=== PATIENT | male | born 1940 | race African-American/Black ===

== ENCOUNTER 2021-08-22 21:10 | Inpatient (IN) | payer OTHER ==
[~2021-08-22] VITALS: Ht 172.7 cm; Wt 80.7 kg
[2021-08-22] MEDS ORDERED: SODIUM CHLORIDE 0.9% 1,000 ML IV ONE (21:30)
[2021-08-22 22:57] LABS: BASOPHILS % 0.3 % (0.0-2.0); EOSINOPHILS % 0.6 % (0.0-5.0); HEMATOCRIT. 46.7 % (42.0-52.0); HEMOGLOBIN. 15.3 g/dL (14.0-18.0); MEAN CORPUSCULAR HEMOGLOBIN 28.5 pg (28.0-32.0); MEAN CORPUSCULAR VOLUME 87.2 fL (80.0-94.0); MEAN PLATELET VOLUME 9.8 fl (7.4-10.4); MONOCYTES % 5.5 % (2.0-8.0); NEUTROPHILS % 74.6 % (40.0-76.0); PLATELET 224 x1000/uL (130-400); RED BLOOD CELL COUNT 5.36 mill/uL (4.7-6.1); RED CELL DISTRIBUTION WIDTH 15.6 % (11.6-14.6)
[2021-08-22 23:00] LABS: CHLORIDE 102 mEq/L (98-107)
[2021-08-22 23:05] LABS: ETHANOL BLOOD < 10 mg/dL
[2021-08-23 02:26] VITALS: BP 154/75
[2021-08-23] MEDS ORDERED: ASPI-1497 PO (03:32)
[2021-08-23] MEDS ORDERED: LISI20TA31 PO (03:32)
[2021-08-23 03:34] LABS: CLARITY URINE TURBID (CLEAR); COLOR URINE YELLOW (YELLOW); KETONES URINE TRACE (NEGATIVE); LEUKOCYTE ESTERASE URINE 3+ (NEGATIVE); NITRITE URINE NEGATIVE (NEGATIVE); OCCULT BLOOD URINE 3+ (NEGATIVE); PH URINE 5.5 (4.5-8.0); PROTEIN URINE 2+ (NEGATIVE); SPECIFIC GRAVITY URINE 1.014 (1.005-1.030)
[2021-08-23 03:45] LABS: *BARBITURATES SCREEN URINE NEGATIVE (NEGATIVE); *BENZODIAZEPINES SCREEN URINE NEGATIVE (NEGATIVE); *COCAINE SCREEN URINE NEGATIVE (NEGATIVE); METHADONE URINE SCREEN NEGATIVE (NEGATIVE); OPIATES URINE SCREEN NEGATIVE (NEGATIVE); PHENCYCLIDINE URINE SCREEN NEGATIVE (NEGATIVE)
[2021-08-23 03:46] LABS: *AMPHETAMINES SCREEN URINE NEGATIVE (NEGATIVE); CANNABINOID URINE SCREEN NEGATIVE (NEGATIVE)
[2021-08-23 04:00] VITALS: BP 148/80
[2021-08-23] MEDS ORDERED: DEXTROSE 50% WATER 50ML SYRINGE IV PRN ×2 (04:00→17:45)
[2021-08-23] MEDS: BLOOD SUGAR DIAGNOSTIC STRIP TEST SCH ×4 (06:40→20:12)
[2021-08-23] MEDS: METFORMIN HCL 500MG TABLET PO SCH ×3 (07:10→16:20)
[2021-08-23] MEDS: INSULIN LISPRO 100 UNITS/ML SUBCUT SCH ×4 (07:10→20:12)
[2021-08-23 08:00] VITALS: BP 158/87
[2021-08-23] MEDS: ASPIRIN 81MG TABLET PO SCH (08:29)
[2021-08-23] MEDS: LISINOPRIL 20MG TABLET PO SCH (08:29)
[2021-08-23 10:27] LABS: EOSINOPHILS % 3.1 % (0.0-5.0); HEMATOCRIT. 40.1 % (42.0-52.0); HEMOGLOBIN. 13.5 g/dL (14.0-18.0); LYMPHOCYTES % 21.9 % (20.0-50.0); MEAN CORPUSCULAR VOLUME 86.2 fL (80.0-94.0); MEAN PLATELET VOLUME 9.6 fl (7.4-10.4); MONOCYTES % 14.1 % (2.0-8.0); NEUTROPHILS % 59.9 % (40.0-76.0); PLATELET 181 x1000/uL (130-400); RED BLOOD CELL COUNT 4.65 mill/uL (4.7-6.1); RED CELL DISTRIBUTION WIDTH 15.6 % (11.6-14.6)
[2021-08-23 10:42] LABS: CHLORIDE 105 mEq/L (98-107)
[2021-08-23 10:49] LABS: LDL CHOLESTEROL 85 mg/dL (5-100)
[2021-08-23 10:51] LABS: HDL CHOLESTEROL 40 mg/dL (40-59)
[2021-08-23 12:00] VITALS: BP 128/56
[2021-08-23 16:00] VITALS: BP 146/76
[2021-08-23] MEDS ORDERED: DOCUSATE SODIUM 100MG CAPSULE PO PRN (17:45)
[2021-08-23] MEDS ORDERED: MAGNESIUM/ALUMINUM HYDROXIDE/SIMETHICONE 30ML UDC PO PRN (17:45)
[2021-08-23] MEDS ORDERED: ACETAMINOPHEN 325MG TABLET PO PRN (17:45)
[2021-08-23] MEDS ORDERED: HYDROCODONE/ACETAMINOPHEN 10/325MG TABLET PO PRN (17:45)
[2021-08-23] MEDS ORDERED: ONDANSETRON HCL 4MG/2ML INJ IV PRN (17:45)
[2021-08-23] MEDS ORDERED: CLONIDINE 0.1MG TABLET PO PRN (17:45)
[2021-08-23] MEDS ORDERED: NALOXONE HCL 0.4MG/ML VIAL IV PRN (18:00)
[2021-08-23] MEDS: CEFTRIAXONE 1,000 MG in DEXTROSE 5% WATER 50 ML IV SCH (19:47)
[2021-08-23 20:00] VITALS: BP 115/73
[2021-08-23] MEDS: ENOXAPARIN 40MG/0.4ML SYR SUBCUT SCH (20:13)
[2021-08-24] VITALS: BP 120/80
[2021-08-24 04:00] VITALS: BP 124/62
[2021-08-24] MEDS: BLOOD SUGAR DIAGNOSTIC STRIP TEST SCH ×4 (06:19→20:25)
[2021-08-24] MEDS: INSULIN LISPRO 100 UNITS/ML SUBCUT SCH ×4 (06:19→20:26)
[2021-08-24] MEDS: METFORMIN HCL 500MG TABLET PO SCH ×3 (06:22→16:52)
[2021-08-24] MEDS: OMEPRAZOLE 20MG CAPSULE EXTENDED RELEASE PO SCH (06:22)
[2021-08-24 08:00] VITALS: BP 131/63
[2021-08-24] MEDS: ASPIRIN 81MG TABLET PO SCH (08:57)
[2021-08-24] MEDS: LISINOPRIL 20MG TABLET PO SCH (09:01)
[2021-08-24 10:28] LABS: HEMATOCRIT. 39.6 % (42.0-52.0); HEMOGLOBIN. 13.3 g/dL (14.0-18.0); MEAN CORPUSCULAR HEMOGLOBIN 28.8 pg (28.0-32.0); MEAN CORPUSCULAR VOLUME 85.8 fL (80.0-94.0); RED BLOOD CELL COUNT 4.61 mill/uL (4.7-6.1); RED CELL DISTRIBUTION WIDTH 15.4 % (11.6-14.6)
[2021-08-24 10:31] LABS: CHLORIDE 106 mEq/L (98-107)
[2021-08-24 10:54] LABS: HDL CHOLESTEROL 39 mg/dL (40-59); T4 FREE 1.41 ng/dL (0.76-1.46)
[2021-08-24 10:56] LABS: LDL CHOLESTEROL 81 mg/dL (5-100)
[2021-08-24 11:00] LABS: PHOSPHORUS 2.6 mg/dL (2.5-4.9)
[2021-08-24 12:00] VITALS: BP 121/61
[2021-08-24 12:45] LABS: PLATELET ESTIMATE NORMAL
[2021-08-24 16:00] VITALS: BP 138/75
[2021-08-24] MEDS: CEFTRIAXONE 1,000 MG in DEXTROSE 5% WATER 50 ML IV SCH (18:01)
[2021-08-24 20:00] VITALS: BP 120/79
[2021-08-24] MEDS: ENOXAPARIN 40MG/0.4ML SYR SUBCUT SCH (20:36)
[2021-08-25] VITALS: BP 128/71
[2021-08-25 04:00] VITALS: BP 128/65
[2021-08-25] MEDS: BLOOD SUGAR DIAGNOSTIC STRIP TEST SCH ×4 (05:54→21:15)
[2021-08-25] MEDS: OMEPRAZOLE 20MG CAPSULE EXTENDED RELEASE PO SCH (05:55)
[2021-08-25 06:07] LABS: CHLORIDE 106 mEq/L (98-107)
[2021-08-25] MEDS: INSULIN LISPRO 100 UNITS/ML SUBCUT SCH ×4 (06:22→21:00)
[2021-08-25] MEDS: METFORMIN HCL 500MG TABLET PO SCH ×2 (06:24→16:21)
[2021-08-25 06:48] LABS: BASOPHILS % 0.6 % (0.0-2.0); EOSINOPHILS % 2.7 % (0.0-5.0); HEMATOCRIT. 38.7 % (42.0-52.0); HEMOGLOBIN. 12.8 g/dL (14.0-18.0); LYMPHOCYTES % 29.9 % (20.0-50.0); MEAN CORPUSCULAR HEMOGLOBIN 28.4 pg (28.0-32.0); MEAN CORPUSCULAR VOLUME 85.9 fL (80.0-94.0); MEAN PLATELET VOLUME 9.9 fl (7.4-10.4); MONOCYTES % 6.4 % (2.0-8.0); NEUTROPHILS % 60.4 % (40.0-76.0); PLATELET 194 x1000/uL (130-400); RED BLOOD CELL COUNT 4.51 mill/uL (4.7-6.1)
[2021-08-25 08:00] VITALS: BP 145/77
[2021-08-25] MEDS: LISINOPRIL 20MG TABLET PO SCH (09:46)
[2021-08-25] MEDS: ASPIRIN 81MG TABLET PO SCH (09:46)
[2021-08-25 12:00] VITALS: BP 134/64
[2021-08-25 16:03] VITALS: BP 128/64
[2021-08-25] MEDS: CEFTRIAXONE 1,000 MG in DEXTROSE 5% WATER 50 ML IV SCH (18:04)
[2021-08-25 20:00] VITALS: BP 159/56
[2021-08-25] MEDS: ENOXAPARIN 40MG/0.4ML SYR SUBCUT SCH (21:15)
[2021-08-26] VITALS: BP 154/79
[2021-08-26 04:00] VITALS: BP 150/77
[2021-08-26] MEDS ORDERED: FAMOTIDINE 20MG TABLET PO SCH (06:40)
[2021-08-26] MEDS: BLOOD SUGAR DIAGNOSTIC STRIP TEST SCH ×3 (07:40→17:40)
[2021-08-26 08:00] VITALS: BP 159/85
[2021-08-26] MEDS: INSULIN LISPRO 100 UNITS/ML SUBCUT SCH ×3 (08:10→18:01)
[2021-08-26] MEDS: ASPIRIN 81MG TABLET PO SCH (08:22)
[2021-08-26] MEDS: METFORMIN HCL 500MG TABLET PO SCH ×2 (08:23→18:19)
[2021-08-26] MEDS: LISINOPRIL 20MG TABLET PO SCH (08:23)
[2021-08-26] MEDS ORDERED: CEPH500T MT (11:28)
[2021-08-26 12:00] VITALS: BP 138/78
[2021-08-26 13:43] VITALS: BP 138/78
[2021-08-26 16:00] VITALS: BP 132/73
== END 2021-08-26 20:05 | disposition home or self-care (01) | DRG 71 ==
LOC: ER 21:10 → 7EST 08-23 00:13 → ENRESERV 08-23 01:42 → 7WST 08-25 18:38
PROVIDERS: ADMIT Internal Medicine; ATTEND Internal Medicine
DX: G93.41 Metabolic encephalopathy (principal); N39.0 Urinary tract infection, site not specified; D64.9 Anemia, unspecified; E11.9 Type 2 diabetes mellitus without complications; I10 Essential (primary) hypertension; Z95.5 Presence of coronary angioplasty implant and graft
CPT/HCPCS: 36415; 70551; 71045; 80048; 80053; 80061; 80076; 80305; 80320; 81003; 82140; 82962; 83036; 83735; 84100; 84439; 84443; 84484; 85025; 87077; 87186; 93005; 93970; 97161; 99291; C1893; J0696; J1650; J1815; J2405; J7030; J7040; J7060; G0480

== ENCOUNTER 2024-07-12 23:43 | Emergency (ER) | payer OTHER ==
[~2024-07-12] VITALS: Ht 170.2 cm; Wt 75.0 kg
[~2024-07-12 23:43] MED LIST: ALLO100T MT; ASPI-1497 PO; ATOR-2 PO; EMPA10TA MT; ISOS30TA12 PO; LATA2.5D14 EACHEYE; LISI20TA31 PO; METO-539 PO; MIRA50TA PO
[2024-07-12 23:47] VITALS: TEMP 98.4; O2SAT 98
[2024-07-13] MEDS ORDERED: ACETAMINOPHEN 325MG TABLET PO ONE
[2024-07-13 00:25] VITALS: BP 160/77; PULSE 56; RESP 18; O2SAT 97
[2024-07-13] MEDS ORDERED: ACETAMINOPHEN 325MG TABLET PO NR (00:30)
[2024-07-13] MEDS ORDERED: TETANUS, DIPHTHERIA, PERTUSSIS VAC/PF 0.5ML (>10YR OLD) IM ONE ×2 (01:30)
== END 2024-07-13 00:58 | disposition left against medical advice (07) ==
LOC: ER 23:43
DX: S00.83XA Contusion of other part of head, initial encounter (principal); E11.9 Type 2 diabetes mellitus without complications; I11.0 Hypertensive heart disease with heart failure; I50.9 Heart failure, unspecified; Z79.82 Long term (current) use of aspirin; Z79.899 Other long term (current) drug therapy; Z98.890 Other specified postprocedural states; W05.0XXA Fall from non-moving wheelchair, initial encounter; Y93.89 Activity, other specified; Y92.89 Other specified places as the place of occurrence of the external cause; Y99.8 Other external cause status
CPT/HCPCS: 99283